=== PATIENT | male | born 1980 | race Caucasian/White ===

== ENCOUNTER 2017-02-27 19:17 | Emergency (ER) | payer OTHER ==
[2017-02-27 19:23] VITALS: BP 123/83; PULSE 80; TEMP 97.4; BMI 28.8
[2017-02-27] MEDS ORDERED: FLUORESCEIN NA 1 EA STRIP ONE (19:56)
[2017-02-27] MEDS ORDERED: TETRACAINE 0.5% OPHTH SOLN 2 ML BOTTLE ONE (19:56)
[2017-02-27] MEDS ORDERED: IBUPROFEN 400 MG TABLET (FP) PO ONE (20:28)
[2017-02-27] MEDS ORDERED: CYCLOPENTOLATE HCL 1% OPHTH SOLN 2 ML BOTTLE ONE (20:30)
--- NOTE | 2017-02-27 20:33 | PDOC ---
History of Present Illness - General History Source: Patient Exam Limitations: No Limitations - History of Present Illness Initial Comments: 02/27/17 20:41 The patient is a 36 year old male with no significant past medical history, who presents to the ED after hitting his eye with a cardboard box around 1 Pm earlier today.Patient states he was folding a cardboard box back when it accidently hit his left eye. He complains of blurry vision in his left eye, and pain in his left eye. He states it feels like there is a foreign object in his left eye. He used irritation drops and tylenol with little to no alleviation. OD 20/20 OS 20/30 <Farhat Villatoro - Last Filed: 02/27/17 20:41> <Shaq Nesbitt - Last Filed: 02/28/17 05:43> - General Chief Complaint: Pain, Acute Stated Complaint: SCRATCHED LEFT EYE WITH BOX Past History <Farhat Villatoro - Last Filed: 02/27/17 20:41> - Past Medical History Other medical history: DENIES - Immunization History Immunization Up to Date: Yes - Psycho/Social/Smoking Cessation Hx Anxiety: No Suicidal Ideation: No Smoking History: Never smoked Have you smoked in the past 12 months: No Information on smoking cessation initiated: No Hx Alcohol Use: No Drug/Substance Use Hx: No Substance Use Type: None <Shaq Nesbitt - Last Filed: 02/28/17 05:43> - Past Medical History Allergies/Adverse Reactions: Allergies Allergy/AdvReac Type Severity Reaction Status Date / Time No Known Allergies Allergy Verified 02/27/17 19:18 Home Medications: Ambulatory Orders NK [No Known Home Medication] 02/27/17 Review of Systems - Review of Systems Able to Perform ROS?: Yes Comments:: 02/27/17 20:50 GENERAL/CONSTITUTIONAL: No fever or chills. No weakness. HEAD, EYES, EARS, NOSE AND THROAT: Pain in left eye. Blurry vision in left eye. No ear pain or discharge. No sore throat. CARDIOVASCULAR: No chest pain or shortness of breath. RESPIRATORY: No cough, wheezing, or hemoptysis. GASTROINTESTINAL: No nausea, vomiting, diarrhea or constipation. GENITOURINARY: No dysuria, frequency, or change in urination. MUSCULOSKELETAL: No joint or muscle swelling or pain. No neck or back pain. SKIN: No rash NEUROLOGIC: No headache, vertigo, loss of consciousness, or change in strength/ sensation. ENDOCRINE: No increased thirst. No abnormal weight change. HEMATOLOGIC/LYMPHATIC: No anemia, easy bleeding, or history of blood clots. ALLERGIC/IMMUNOLOGIC: No hives or skin allergy. <Farhat Villatoro - Last Filed: 02/27/17 20:41> *Physical Exam - Vital Signs Last Vital Signs Temp Pulse Resp BP Pulse Ox 97.4 F L 80 16 123/83 98 02/27/17 19:18 02/27/17 19:18 02/27/17 19:18 02/27/17 19:18 02/27/17 19:18 - Physical Exam Comments: 02/27/17 20:51 GENERAL: Awake, alert, and fully oriented, in no acute distress HEAD: No signs of trauma EYES: PERRLA, EOMI, sclera anicteric, conjunctiva clear. No photophobia to direct or contralateral light. 2 small corneal abrasions overlying the cornea but not in direct access. ENT: Auricles normal inspection, hearing grossly normal, nares patent, oropharynx clear without exudates. Moist mucosa NECK: Normal ROM, supple, no lymphadenopathy, JVD, or masses LUNGS: Breath sounds equal, clear to auscultation bilaterally. No wheezes, and no crackles HEART: Regular rate and rhythm, normal S1 and S2, no murmurs, rubs or gallops ABDOMEN: Soft, nontender, normoactive bowel sounds. No guarding, no rebound. No masses EXTREMITIES: Normal range of motion, no edema. No clubbing or cyanosis. No cords, erythema, or tenderness NEUROLOGICAL: Cranial nerves II through XII grossly intact. Normal speech, normal gait SKIN: Warm, Dry, normal turgor, no rashes or lesions noted. <Farhat Villatoro - Last Filed: 02/27/17 20:41> - Vital Signs Last Vital Signs Temp Pulse Resp BP Pulse Ox 97.4 F L 80 16 123/83 98 02/27/17 19:18 02/27/17 19:18 02/27/17 19:18 02/27/17 19:18 02/27/17 19:18 <Shaq Nesbitt - Last Filed: 02/28/17 05:43> Medical Decision Making - Medical Decision Making 02/28/17 05:42 corneal abrasion x 2 OS adjacent to visual access without iritis tetanus utd analgesia cycloplegia eye patch for symptomatic relief ophto fu <Shaq Nesbitt - Last Filed: 02/28/17 05:43> *DC/Admit/Observation/Transfer - Attestations Scribe Attestion: 02/27/17 20:52 Documentation prepared by Farhat Villatoro, acting as medical care evaluation specialist for Emergency Dept,Physician, . <Farhat Villatoro - Last Filed: 02/27/17 20:41> <Shaq Nesbitt - Last Filed: 02/28/17 05:43> Diagnosis at time of Disposition: Corneal abrasion Qualifiers: Encounter type: initial encounter Laterality: left Qualified Code(s): S05.02XA - Injury of conjunctiva and corneal abrasion without foreign body, left eye, initial encounter - Discharge Dispostion Disposition: HOME Condition at time of disposition: Stable - Referrals Referrals: Slava Flores MD [Staff Physician] - 3 days - Patient Instructions Printed Discharge Instructions: DI for Corneal Abrasion
== END 2017-02-27 20:37 | disposition home or self-care (01) ==
LOC: FER 19:17
DX: S05.02XA Injury of conjunctiva and corneal abrasion without foreign body, left eye, initial encounter (principal); W22.8XXA Striking against or struck by other objects, initial encounter; Y93.89 Activity, other specified; Y92.9 Unspecified place or not applicable
CPT/HCPCS: 99281-25